=== PATIENT | male | born 1945 ===

== ENCOUNTER → 2018-09-28 21:21 | Outpatient (REF) | payer MEDICARE, SELFPAY ==
[2018-09-28 22:31] LABS: Add Manual Diff / Slide Review NO; Basophils Absolute Auto 0 /uL (0-100); Basophils Percent Auto 0.3 % (0-2); Eosinophils Absolute Auto 300 /uL (0-450); Eosinophils Percent Auto 3.3 % (2-4); Hematocrit 38.6 % (41-53); Lymphocytes Absolute Auto 1600 /uL (1100-4500); Lymphocytes Percent Auto 20.4 % (25-40); Mean Corpuscular HGB Conc 33.7 % (30-36); Mean Corpuscular Hemoglobin 32.3 PG (26-34); Mean Corpuscular Volume 95.8 fL (80-100); Monocytes Absolute Auto 600 /uL (0-900); Monocytes Percent Auto 7.1 % (3-14); Neutrophils Absolute Auto 5300 /uL (1500-7000); Neutrophils Percent Auto 68.9 % (50-75); Platelet Count 276 X10^3/uL (150-400); Red Blood Cell Count 4.03 X10^6/uL (4.5-5.9); Red Cell Distribution Width 13.2 % (11.6-14.8); White Blood Cell Count 7.7 X10^3/uL (4.5-11.0)
[2018-09-29 00:24] LABS: HEMOLYSIS < 15 (0-50)
[2018-09-29 00:30] LABS: Alanine Aminotransferase 34 IU/L (21-72); Albumin 3.9 g/dL (3.5-5.0); Albumin Globulin Ratio 1.3 (1.0-2.8); Alkaline Phosphatase 80 U/L (38-126); Aspartate Aminotransferase 24 IU/L (17-59); BUN Creatinine Ratio 14.8 (6-22); Bilirubin Total 0.4 mg/dL (0.2-1.3); Blood Urea Nitrogen 34 mg/dL (9-20); Calcium 9.9 mg/dL (8.4-10.2); Carbon Dioxide 29 mmol/L (22-32); Chloride 100 mmol/L (98-107); Estimated Glomerular Filt Rate 28.2 mL/min (>60); Globulin 3.1 g/dL (1.7-4.1); Glucose 133 mg/dL (80-110); Magnesium 2.2 mg/dL (1.6-2.3); Potassium 4.4 mmol/L (3.4-5.1); Sodium 140 mmol/L (137-145)
[2018-09-29 01:01] LABS: Thyroid Stimulating Hormone 1.73 uIU/mL (0.47-4.68)
[2018-09-29 04:40] LABS: Hemoglobin A1C% w Est Avg Glu 7.4 % (4.0-6.0)
[2018-09-29 04:51] LABS: High Sensitivity CRP - Cardiac < 0.1 mg/L (1.0-3.0)
[2018-09-29 05:24] LABS: Free T4, Direct Thyroxine 1.19 ng/dL (0.78-2.19)
== END ==
LOC: LAB 21:21
PROVIDERS: Visit Provider Family Medicine
DX: I10 Essential (primary) hypertension (principal); Z13.89 Encounter for screening for other disorder; E78.00 Pure hypercholesterolemia, unspecified; E08.21 Diabetes mellitus due to underlying condition with diabetic nephropathy; R55 Syncope and collapse
CPT/HCPCS: 36415; 80053; 82728; 83036; 83735; 84439; 84443; 85025; 86140